=== PATIENT | female | born 1965 | race American Indian/Alaskan Native ===

== ENCOUNTER 2020-12-13 13:03 | Emergency (ER) | payer OTHER ==
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
[2020-12-13] MEDS ORDERED: HYDROmorphone 1 MG/1 ML INJ IV ONE (15:02)
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
[2020-12-13 18:43] VITALS: BP 170/98
== END 2020-12-13 18:20 | disposition home or self-care (01) ==
LOC: ED 13:03
DX: S92.001A Unspecified fracture of right calcaneus, initial encounter for closed fracture (principal); S62.309A Unspecified fracture of unspecified metacarpal bone, initial encounter for closed fracture; S20.219A Contusion of unspecified front wall of thorax, initial encounter; I10 Essential (primary) hypertension; Z98.890 Other specified postprocedural states; Z79.899 Other long term (current) drug therapy; V49.49XA Driver injured in collision with other motor vehicles in traffic accident, initial encounter; Y92.410 Unspecified street and highway as the place of occurrence of the external cause; Y93.89 Activity, other specified; Y99.8 Other external cause status
CPT/HCPCS: 29125; 71046; 73130; 73610; 73700; 96374; 99285; J1170